=== PATIENT | female | born 1935 | race Caucasian/White ===

== ENCOUNTER → 2016-04-16 | Outpatient (REF) | payer MEDICARE ==
[2016-04-16 12:47] LABS: ANION GAP 15.9 MEQ/L (3-15)
== END ==
LOC: LAB 11:45
PROVIDERS: ATTEND Nurse Practitioner Family
DX: I10 Essential (primary) hypertension (principal)
CPT/HCPCS: 80048

== ENCOUNTER → 2016-04-28 | Outpatient (CLI) | payer MEDICARE | LOC: RAD 09:34 | PROVIDERS: ATTEND Nurse Practitioner Family | DX: R19.00 Intra-abdominal and pelvic swelling, mass and lump, unspecified site (principal) ==

== ENCOUNTER → 2016-04-30 | Outpatient (REF) | payer MEDICARE ==
[2016-04-30 16:50] LABS: ANION GAP 14.3 MEQ/L (3-15)
== END ==
LOC: LAB 15:47
PROVIDERS: ATTEND Nurse Practitioner Family
DX: E83.52 Hypercalcemia (principal)
CPT/HCPCS: 80048; 82306; 83970

== ENCOUNTER → 2016-05-06 | Outpatient (CLI) | payer MEDICARE | LOC: RAD 10:26 | PROVIDERS: ATTEND Nurse Practitioner Family | DX: Z78.0 Asymptomatic menopausal state (principal) | CPT/HCPCS: 77080 ==